=== PATIENT | male | born 1960 | race Caucasian/White ===

== ENCOUNTER 2016-07-08 05:26 | Observation (INO) | payer BC ==
[2016-07-06 17:13] LABS: HEMATOCRIT 48.3 % (40.0-51.0)
[2016-07-06 17:38] LABS: ALBUMIN 3.7 G/DL (3.5-5.0); ALKALINE PHOSPHATASE 147 U/L (45-117); BUN (BLOOD UREA NITROGEN) 15 MG/DL (6-23); CALCIUM, SERUM 9.2 MG/DL (8.5-10.4); CHLORIDE, SERUM 108 MMOL/L (96-112); CO2 (CARBON DIOXIDE) 30 MMOL/L (24-34); CREATININE 0.94 MG/DL (0.70-1.30); GFR AFRICAN AMERICAN 107 ML/MIN (>=60); GFR NON AFRICAN AMERICAN 92 ML/MIN (>=60); GLOBULIN 3.6 G/DL (2.5-4.1); GLUCOSE, SERUM 103 MG/DL (60-99); POTASSIUM, SERUM 4.1 MMOL/L (3.5-5.3); SGOT(AST) 19 U/L (5-40); SGPT(ALT) 28 U/L (5-65); SODIUM, SERUM 143 MMOL/L (135-148); TOTAL BILIRUBIN 0.6 MG/DL (0-1.2); TOTAL PROTEIN 7.3 G/DL (6.0-8.5)
--- NOTE | ~2016-07-08 | OP ---
Record Of Operation [facility] [address] [place]. [address] NAME: RM JIMENEZ : 64 STATUS : ADM IN PAT#: [id number] AGE: 55 ADM/REG DATE : 07/08/16 MR#: [id number] REPORT SERV DATE: 07/08/16 DICTATED BY: BAIRON BRADEN DATE: 07/08/16 REPORT STATUS : Draft TRANSCRIBED BY: MODL DATE: 07/08/16 DATE OF PROCEDURE: 07/08/2016 PREOPERATIVE DIAGNOSIS: Compressive posterior left thyroid nodule. POSTOPERATIVE DIAGNOSIS: Compressive posterior left thyroid nodule. PROCEDURE: Left hemithyroidectomy and isthmusectomy. SURGEON: Bairon Braden M.D. RESIDENT SURGEON: Kym Melchor MD. ANESTHESIA: General. ESTIMATED BLOOD LOSS: 10 mL. DETAILS OF PROCEDURE: The patient arrived in the operating suite and placed on the table in supine position. General anesthesia was obtained via an endotracheal tube. The patient was appropriately positioned. The neck and upper chest were prepped and draped in a sterile manner. A cervical collar incision was performed. Subplatysmal flaps were elevated with blunt dissection and cautery. Strap muscles were split in the midline. A plane dissection was created between the left thyroid lobe and overlying strap muscles. Middle thyroid vein branches were divided with the Harmonic demarco. The superior pole vessels were isolated with care to avoid injury to the external branch of superior laryngeal nerve and divided with the Harmonic demarco. The thyroid was then gradually rotated anteromedially. The blood supply of the superior parathyroid gland was carefully preserved. The superior parathyroid gland was identified, they remained viable, never changing color throughout the procedure. Recurrent nerve was identified and dissection maintained anteromedial to its course, dividing small vessels along the lateral and posterolateral aspect of the thyroid very close to the capsule with the LigaSure and between clips. The inferior parathyroid gland was not conclusively identified. The inferior thyroid veins anteriorly were divided with the LigaSure and the large left lobe with a large posterior nodule approximately 3 cm delivered into the wound. The thyroid was divided from the pretracheal fascia with the LigaSure and the isthmus along its right edge transected with the same. Specimen was sent for permanent histology. The wound was inspected, irrigated, and hemostasis was excellent. Surgicel was placed in tracheoesophageal groove. Strap muscle were approximated with 3-0 Vicryl, platysma with 4-0 Vicryl. Skin closed with subcuticular 5-0 Monocryl. Sterile dressing was applied. The patient awakened, extubated, and taken to PACU. /CARITO Bairon Braden M.D. Record Of [address] [address] NAME: RM JIMENEZ : 64 STATUS : ADM IN [facility]#: [id number] AGE: 55 ADM/REG DATE : 07/08/16 MR#: [id number] REPORT SERV DATE: 07/08/16 DICTATED BY: BAIRON BRADEN DATE: 07/08/16 REPORT STATUS : Draft TRANSCRIBED BY: CARITO DATE: 07/08/16 / [id number] CC: Elijah Ayala II, M.D.
[~2016-07-08 05:26] MED LIST: AVAPRO300 MG PO; FLOMAX4 PO; MULTIPLE VIT PO; PREV30 PO
[2016-07-09] MEDS ORDERED: PCET PO (10:03)
== END 2016-07-09 10:59 | disposition home or self-care (01) ==
LOC: SDC 05:26 → 5SO 09:37
PROVIDERS: Specialist
PROC: 0GTG0ZZ Resection of Left Thyroid Gland Lobe, Open Approach (ICD-10-PCS; principal; 2016-07-08 06:45)
DX: E06.3 Autoimmune thyroiditis (principal); I10 Essential (primary) hypertension; K21.9 Gastro-esophageal reflux disease without esophagitis; N40.0 Benign prostatic hyperplasia without lower urinary tract symptoms; G47.33 Obstructive sleep apnea (adult) (pediatric); M19.90 Unspecified osteoarthritis, unspecified site; E66.01 Morbid (severe) obesity due to excess calories; Z68.39 Body mass index [BMI] 39.0-39.9, adult; Z88.0 Allergy status to penicillin; Z87.442 Personal history of urinary calculi; Z90.89 Acquired absence of other organs; Z79.899 Other long term (current) drug therapy; Z98.890 Other specified postprocedural states
CPT/HCPCS: 80053; 85014; 85018; 88307; 93005; A9270-GY; G0378; J0690; J2250; J2370; J2405; J2710; J3010